=== PATIENT | female | born 1945 | race Caucasian/White ===

== ENCOUNTER 2017-09-04 05:54 | Inpatient (IN) | payer MEDICARE, OTHER ==
[2017-09-04] MEDS ORDERED: ROPIVACAINE HCL/PF 100 MG, EPINEPHrine 0.2 MG, KETOROLAC TROMETHAMINE 30 MG in NORMAL S... IJ PRN (06:00)
[2017-09-04] MEDS ORDERED: ceFAZolin SODIUM 1 GM VIAL IV PRN (06:00)
[2017-09-04] MEDS ORDERED: MORPHINE SULFATE 15 MG TABLET.SA PO PRN (06:00)
[2017-09-04] MEDS ORDERED: TRANEXAMIC ACID 1,000 MG in NORMAL SALINE 100 ML IV PRN (06:00)
[2017-09-04] MEDS ORDERED: RINGER'S SOLUTION,LACTATED 1,000 ML IV PRN (06:00)
[2017-09-04] MEDS ORDERED: RINGER'S SOLUTION,LACTATED 800 ML IV ONE (07:45)
[2017-09-04] MEDS ORDERED: RINGER'S SOLUTION,LACTATED 1,000 ML IV ONE ×2 (09:19→10:53)
[2017-09-04] MEDS ORDERED: MAGNESIUM HYDROXIDE 30 ML UDC PO PRN (11:10)
[2017-09-04] MEDS ORDERED: ACETAMINOPHEN 500 MG TABLET PO PRN (11:10)
[2017-09-04] MEDS ORDERED: ZOLPIDEM TARTRATE 5 MG TABLET PO PRN (11:10)
[2017-09-04] MEDS ORDERED: HYDROmorphone HCL 1 MG/ML DISP.SYRIN IV PRN (11:10)
[2017-09-04] MEDS ORDERED: MAG HYDROX/ALUMINUM HYD/SIMETH 30 ML UDC PO PRN (11:10)
[2017-09-04] MEDS ORDERED: DEXTROSE 5%-LACTATED RINGERS 1,000 ML IV PRN (11:10)
[2017-09-04] MEDS ORDERED: PROMETHAZINE HCL 5 MG in DEXTROSE 5 % IN WATER 50 ML IV PRN ×2 (11:10)
[2017-09-04] MEDS ORDERED: ONDANSETRON HCL/PF 2 MG/ML VIAL IV PRN (11:10)
--- NOTE | 2017-09-04 11:10 | POSTOP NO ---
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
--- NOTE | 2017-09-04 11:59 | OR ---
Anesthesia Procedure Note - Anesthesia Procedure Note Date of Service: 09/04/17 Narrative: Vital Signs - Last Taken Temp 36.4 C L 09/04/17 11:54 Pulse 67 09/04/17 11:54 Resp 14 09/04/17 11:54 BP 121/61 09/04/17 11:54 Pulse Ox 98 09/04/17 11:54 O2 Oxygen Delivery Method Room Air ANESTHESIA PROCEDURE NOTE Date of Procedure: 09/04/2017 Time of procedure: 7:50 AM. Performed by: MARIANO Mendosa CRNA, MSN Drip Pumper: Beatriz Franklin RN. Preprocedure diagnosis: Left total knee arthroplasty revision. Post procedure diagnosis: Same. Procedure: Left femoral nerve block. Indications: Post left total knee arthroplasty revision pain relief. Findings: See below. Details of the procedure: The patient was brought to OR #4 and placed in supine position. The patient's last femoral area was prepped with chlorhexidine and using ultrasound guidance the left femoral artery and nerve was identified and lidocaine 1% was infiltrated to the skin of the intended injection site. Under ultrasound guidance the femoral nerve was approached with visualization of a 2 inch shield block needle until a thigh/leg response was identified on nerve stimulator. Once the stimulator response was effective at less than 0.5 mV and greater than 0.3 mV with the needle visualized, the femoral nerve was surrounded with 30 mL bupivacaine 0.25% with 1-200,000 epinephrine. Please see radiology/ultrasound report for details and retained images of the procedure. EBL: 0 Fluids: N/A. Specimen: N/A. Post procedure condition: The patient tolerated the procedure well. No complications were noted. Thank you for this consultation. Rick Barnhart CRNA, ARNP, MSN 09/04/17 11:56
[2017-09-04] MEDS: KETOROLAC TROMETHAMINE 15 MG/ML VIAL IV SCH ×2 (12:55→17:47)
[2017-09-04] MEDS: ceFAZolin SODIUM 1 GM in DEXTROSE 5 % IN WATER 100 ML IV SCH ×4 (12:56→19:21)
[2017-09-04] MEDS: CALCIUM CARBONATE/VITAMIN D3 1 TAB TABLET PO SCH ×2 (12:56→17:47)
[2017-09-04] MEDS: oxyCODONE HCL/ACETAMINOPHEN 1 TAB TABLET PO PRN (15:42)
--- NOTE | 2017-09-04 17:00 | CONS ---
[facility] - General Date of Service: 09/04/17 Narrative: medical management Source: patient Exam Limitations: clinical condition - History of Present Illness Initial Comments: Brenna Gerardo , is a 72 year old, White Female, with PMH of Hypertension, Hyperlipidimia, Morbid Obesity who was referred to me for medical management on 09/04/2017. She just had a revision of her left total knee arthrorplasty. She is is on her recliner and is currently still feeling numb but able to move her toes. Timing/Duration: 1/2 hour Associated Symptoms: nausea Allergies/Adverse Reactions: Allergies No Known Allergies Allergy (Verified 09/04/17 06:51) Home Medications: Home Medications Medication Instructions Recorded Last Taken Acetaminophen [Tylenol] 1,300 mg PO HS 07/03/15 Unknown Ascorbic Acid [Vitamin C] 500 mg PO DAILY 07/03/15 Unknown Aspirin [Aspirin Enteric Coated] 81 mg PO DAILY 07/03/15 Unknown Ferrous Sulfate [Iron] 325 mg PO DAILY 07/03/15 Unknown Glucosamine/D3/Boswellia Nella 1 each PO DAILY 07/03/15 Unknown [Osteo Bi-Flex Caplet] Multivitamins [Multivitamin David] 1 cap PO DAILY 07/03/15 Unknown Potassium Chloride [Klor-Con 10] 30 meq PO DAILY 07/03/15 Unknown Vit C/E/Zn/Coppr/Lutein/Zeaxan 1 each PO DAILY 07/03/15 Unknown [Ocuvite Lutein & Zeaxanthin Cp] Biotin 10,000 mcg PO DAILY 08/18/17 Unknown Calcium Carbonate/Vitamin D3 1 each PO BID 08/18/17 Unknown [Calcium 500 + Vit D3 400 Tab] Calcium Carbonate/Vitamin D3 1 each PO TID 08/18/17 Unknown [Calcium 500 + Vit D3 400 Tab] Losartan/Hydrochlorothiazide 1 each PO DAILY 08/18/17 Unknown [Hyzaar 100-25 Tablet] [place]-3/Dha/Epa/Fish Oil [Fish Oil 1 each PO DAILY 08/18/17 Unknown 1,360 mg Softgel] - Patient's Past Medical History Patient History - Medical: Anemia, Arthritis, Cataracts, GERD Patient History - Cardiac/Respiratory: Hypertension Patient History - Cancer: Other Patient History - Surgical Procedures: Cataracts, Cholecystectomy, Colonoscopy, D & C, Other Patient History - Other: None - Family History Mother Family History - Medical: , No pertinent hx Family History - Cardiac/Respiratory: Cardiomyopathy, Coronary Heart Disease, Hypertension Family History - Cancer: Breast, Lung Sister Family History - Cardiac/Respiratory: CVA/Stroke Family History - Cancer: No pertinent family hx Father Family History - Medical: , No pertinent hx Family History - Cardiac/Respiratory: CVA/Stroke Family History - Cancer: No pertinent family hx Brother Family History - Cardiac/Respiratory: Coronary Heart Disease, Hypertension Family History - Cancer: No pertinent family hx - Social History Living Situations: other Abuse History: No History of abuse Psych History: No pertinent hx Smoking Status: Never smoker Have you smoked in the past 12 months: No Do you dip or chew tobacco: No Alcohol Use: occasionally Drug Use: none - Immunizations Immunizations Up to Date: Yes Hx Pneumococcal Vaccination: No History of Influenza Vaccine: Yes Procedures AFTER-CATAR DISCISSION (06/11/02) BONE GRAFT-METATAR/TAR (11/20/09) BUNIONECT/SFT/OSTEOTOMY (11/05/09) CERVICAL LES DESTRUC NEC (11/12/08) CLOSED ENDOSCOPIC BIOPSY OF LARGE INTESTINE (07/13/04) COLONOSCOPY (07/15/15) D & C NEC (11/12/08) HYSTEROSCOPY (11/12/08) INT FIXATION-METATAR/TAR (11/12/09) PACKED CELL TRANSFUSION (12/23/04) REMOV INT FIX-METAT/TAR (11/12/09) REPAIR OF HAMMER TOE (11/05/09) TOTAL KNEE REPLACEMENT (12/23/04) Medications - Medications Current Medications: Current Medications Calcium/Vitamin D (Calcarb 600 With Vitamin D) 1 tab PO TID SARAH Stop: 10/04/17 13:01 Last Admin: 09/04/17 12:56 Dose: 1 tab Cefazolin Sodium (Ancef) 2 gm IV PREOP PRN PRN Reason: Preop Stop: 09/04/17 23:59 Last Admin: 09/04/17 08:15 Dose: 2 gm Tranexamic Acid 1,000 mg/ (Sodium Chloride) 110 mls @ 660 mls/hr IV ONCE PRN PRN Reason: Prior to Tourniquet Release Stop: 09/04/17 23:59 Last Admin: 09/04/17 10:45 Dose: 110 mls Ropivacaine 100 mg/Epinephrine HCl 0.2 mg/Ketorolac Tromethamine 30 mg/Sodium Chloride 111.2 mls @ 0.01 mls/hr IJ PRN PRN PRN Reason: Joint Injection Stop: 09/04/17 23:59 Last Admin: 09/04/17 10:47 Dose: 111.2 mls Lactated Ringer's (Lactated Ringers) 1,000 mls @ 175 mls/hr IV .Q5H43M PRN PRN Reason: Keep Vein Open Stop: 10/04/17 06:01 Last Admin: 09/04/17 06:50 Dose: 175 mls/hr Cefazolin Sodium 1 gm/ (Dextrose/Water) 110 mls @ 200 mls/hr IV Q6H SARAH PRN Reason: Protocol Stop: 09/05/17 01:42 Last Admin: 09/04/17 12:56 Dose: 200 mls/hr Dextrose/Lactated Ringer's (Dextrose 5%-Lr) 1,000 mls @ 125 mls/hr IV .Q8H PRN PRN Reason: HYDRATION Stop: 10/04/17 11:11 Last Admin: 09/04/17 12:54 Dose: 125 mls/hr Ketorolac Tromethamine (Toradol) 15 mg IV Q6H SARAH Stop: 09/06/17 06:16 Last Admin: 09/04/17 12:55 Dose: 15 mg Morphine Sulfate (Ms Contin) 15 mg PO PREOP PRN PRN Reason: PREOP PAIN Stop: 09/04/17 23:59 Last Admin: 09/04/17 07:21 Dose: 15 mg Oxycodone/Acetaminophen (Percocet 5 Mg/325 Mg) 2 tab PO Q4H PRN PRN Reason: Moderate Pain Stop: 10/04/17 11:11 Last Admin: 09/04/17 15:42 Dose: 2 tab Review of Systems - Review of Systems Generalized/Overall Review: Absent: Chills, Fever Respiratory: Absent: Cough, Shortness of Breath, Orthopnea Cardiac: Absent: Chest Pain, Edema, Palpitations Abdominal: Present: Nausea. Absent: Vomiting Genitourinary: Absent: Urgency, Frequency Musculoskeletal: Absent: Joint Pain Physical Examination - Exam Vital Signs: Vital Signs - Last Taken Temp 36.4 C L 09/04/17 12:00 Pulse 70 09/04/17 12:00 Resp 18 09/04/17 12:00 BP 116/57 09/04/17 12:00 Pulse Ox 95 09/04/17 12:00 O2 Oxygen Delivery Method Room Air Constitutional: Present: Alert, Oriented x3, Cooperative ENT Exam: Present: hearing grossly normal Eye Exam: bilateral eye: normal inspection, PERRL, EOMI Neck: Present: supple Breasts: Present: Exam deferred Respiratory: Present: normal breath sounds, No rales, No wheezing Cardiovascular/Chest: Present: regular rate, rhythm, no JVD, no murmur Abdomen: Present: Normal bowel sounds, soft, nontender, nondistended Extremity: Present: no calf tenderness, other - able to move her toes - Assessments/Findings (1) Status post revision of total knee replacement Diagnosis(s): patient is comfortable at this time. continue with PT/OT and anticoagulation Problem: Acute Qualifiers: Laterality: left Qualified Code(s): Z96.652 - Presence of left artificial knee joint (2) Hyperlipemia Diagnosis(s): continue with home medications Problem: Chronic Qualifiers: Hyperlipidemia type: mixed hyperlipidemia Qualified Code(s): E78.2 - Mixed hyperlipidemia (3) Hypertension Diagnosis(s): continue with home medications. Problem: Chronic Qualifiers: Hypertension type: essential hypertension Qualified Code(s): I10 - Essential (primary) hypertension
[2017-09-04] MEDS: MORPHINE SULFATE 15 MG TABLET.SA PO SCH (20:56)
[2017-09-04] MEDS: SENNOSIDES/DOCUSATE SODIUM 1 TAB TABLET PO SCH (20:57)
[2017-09-04] MEDS: diphenhydrAMINE HCL 50 MG/ML VIAL IV PRN (21:00)
[2017-09-05] MEDS: ceFAZolin SODIUM 1 GM in DEXTROSE 5 % IN WATER 100 ML IV SCH ×2 (00:23)
[2017-09-05] MEDS: KETOROLAC TROMETHAMINE 15 MG/ML VIAL IV SCH ×5 (00:23→23:50)
[2017-09-05] MEDS: diphenhydrAMINE HCL 50 MG/ML VIAL IV PRN (02:04)
[2017-09-05] MEDS: oxyCODONE HCL/ACETAMINOPHEN 1 TAB TABLET PO PRN ×2 (04:36→19:43)
[2017-09-05 05:59] LABS: Hematocrit 27.6 % (37.0-47.0); Hemoglobin 9.2 gm/dL (12.5-16.0); Mean Cell Volume 94.2 fl (78-100); Mean Corpuscular Hemoglobin 31.4 pg (27-31); Mean Corpuscular Hgb Conc 33.3 g/dl (32-36); Mean Platelet Volume 9.8 fl (6.0-9.5); Platelet Count 157 K/mm3 (150-450); Red Blood Count 2.93 M/mm3 (4.2-5.4); Red Cell Distribution Width 13.2 % (11.5-14.0); White Blood Count 8.3 K/mm3 (4.0-10.5)
[2017-09-05 06:10] LABS: Anion Gap 8.1 mmol/L (6.8-13.8); BUN/Creatinine Ratio 25.2 (9.0-21.6); Calcium * 8.8 mg/dL (7.9-10.9); Carbon Dioxide 30.7 mmol/L (24-32.6); Estimated Creat Clear 39.3; Potassium 3.8 mmol/L (3.4-4.6)
--- NOTE | 2017-09-05 08:12 | PN ---
Subjective - Date and Time Seen Date: 09/05/17 Time: 08:12 Subjective Narrative: Patient NAD. Zaheerbrile. Tmax 36.7. Objective - Review of Systems Generalized/Overall Review: Denies: Weakness, Chills, Fever Respiratory: Denies: Cough, Shortness of Breath, Orthopnea Cardiac: Denies: Chest Pain, Edema, Palpitations Abdominal: Denies: Nausea, Vomiting Genitourinary Symptoms: Denies: Urgency, Frequency Musculoskeletal Complaints: Reports: Joint Pain - Vitals Vitals: Last Vital Signs Temp 36.7 C 09/05/17 07:19 Pulse 69 09/05/17 07:19 Resp 18 09/05/17 07:19 BP 102/45 09/05/17 07:19 Pulse Ox 95 09/05/17 07:19 - Abnormal Lab Findings Abnormal Lab Findings: Abnormal Lab Results 09/05/17 09/05/17 Range/Units 05:56 05:56 RBC 2.93 L (4.2-5.4) M/mm3 Hgb 9.2 L (12.5-16.0) gm/dL Hct 27.6 L (37.0-47.0) % MCH 31.4 H (27-31) pg MPV 9.8 H (6.0-9.5) fl BUN 28 H (3-23) mg/dL Est GFR (Non-Af Amer) 52 L (60-130) mL/min BUN/Creatinine Ratio 25.2 H (9.0-21.6) Random Glucose 121 H (70-110) mg/dL - Exam Constitutional: Present: Alert, Oriented x3, Cooperative ENT Exam: Present: hearing grossly normal Neck: Present: supple Respiratory: Present: normal breath sounds, No rales, No wheezing Cardiovascular/Chest: Present: regular rate, rhythm, no JVD, no murmur Extremity: Present: no pedal edema, no calf tenderness Cauti Physician Documentation - Urinary Catheter Management Urethral (Tucker) Date of Insertion: 09/04/17 Time of Insertion: 08:51 Date of Removal: 09/05/17 Time of Removal: 07:51 Assessment/Plan - Problems/Diagnosis (1) Status post revision of total knee replacement Problem: Acute Qualifiers: Laterality: left Qualified Code(s): Z96.652 - Presence of left artificial knee joint Narrative: POD # 1. afebrile. continue with PT/OT. (2) Acute blood loss anemia Problem: Acute Narrative: will monitor. (3) Hyperlipemia Problem: Chronic Qualifiers: Hyperlipidemia type: mixed hyperlipidemia Qualified Code(s): E78.2 - Mixed hyperlipidemia Narrative: stable (4) Hypertension Problem: Chronic Qualifiers: Hypertension type: essential hypertension Qualified Code(s): I10 - Essential (primary) hypertension Narrative: stable.
--- NOTE | 2017-09-05 08:13 | PN ---
Subjective - Date and Time Seen Date: 09/05/17 Time: 08:12 Subjective Narrative: Subjective: Reports minimal pain. Was able to get to the chair with therapy. Pain is well-controlled. Voiding without any complications. Tolerating by mouth intake. Denies any nausea or vomiting. Denies calf pain. Slept well. Physical exam: Alert and oriented to person, place and time Left lower Extremity: Palpable dorsalis pedis pulse. Sensation grossly intact to light touch. Dressings clean and dry. Able to flex and extend ankle and toes. No excessive drainage. Calf and thigh are soft and nontender. Assessment: Postop day 1 status post revision left total knee arthroplasty. Plan: Due to the need for pain control, post-operative limited mobility, protection of the surgical site and joint, monitoring of the wound, and the management of chronic medical conditions, she requires continued inpatient care. Continue with physical and occupational therapy weightbearing as tolerated. Continue with anticoagulation. 24 hours postoperative prophylactic antibiotics. Pain control with goal to rely on oral medications. Continue bowel regimen. Will need 6 weeks with walker or assitive device to protect joint while ambulating during the recovery process. Discharge planning. Discontinue drain and Tucker catheter. Repeat hemogram and BMP in a.m. in order to monitor for postoperative anemia and electrolyte imbalance. Objective - Vitals Vitals: Last Vital Signs Temp 36.7 C 09/05/17 07:19 Pulse 69 09/05/17 07:19 Resp 18 09/05/17 07:19 BP 102/45 09/05/17 07:19 Pulse Ox 95 09/05/17 07:19 - Abnormal Lab Findings Abnormal Lab Findings: Abnormal Lab Results 09/05/17 09/05/17 Range/Units 05:56 05:56 RBC 2.93 L (4.2-5.4) M/mm3 Hgb 9.2 L (12.5-16.0) gm/dL Hct 27.6 L (37.0-47.0) % MCH 31.4 H (27-31) pg MPV 9.8 H (6.0-9.5) fl BUN 28 H (3-23) mg/dL Est GFR (Non-Af Amer) 52 L (60-130) mL/min BUN/Creatinine Ratio 25.2 H (9.0-21.6) Random Glucose 121 H (70-110) mg/dL Cauti Physician Documentation - Urinary Catheter Management Urethral (Tucker) Date of Insertion: 09/04/17 Time of Insertion: 08:51 Date of Removal: 09/05/17 Time of Removal: 07:51 Assessment/Plan - Problems/Diagnosis (1) Acute blood loss anemia Problem: Acute (2) Status post revision of total knee replacement Problem: Acute Qualifiers: Laterality: left Qualified Code(s): Z96.652 - Presence of left artificial knee joint (3) Hyperlipemia Problem: Chronic Qualifiers: Hyperlipidemia type: mixed hyperlipidemia Qualified Code(s): E78.2 - Mixed hyperlipidemia (4) Hypertension Problem: Chronic Qualifiers: Hypertension type: essential hypertension Qualified Code(s): I10 - Essential (primary) hypertension (5) Iron (Fe) deficiency anemia Problem: Chronic
[2017-09-05] MEDS ORDERED: NON-FORMULARY 1 DOSE DOSE (Losartan/Hydrochlorothiazide [Hyzaar 100-25 Tablet] 1 EACH) PO SCH (09:00)
[2017-09-05] MEDS: LOSARTAN POTASSIUM 50 MG TABLET PO SCH (09:10)
[2017-09-05] MEDS: CALCIUM CARBONATE/VITAMIN D3 1 TAB TABLET PO SCH ×3 (09:10→18:01)
[2017-09-05] MEDS: MORPHINE SULFATE 15 MG TABLET.SA PO SCH ×2 (09:11→20:13)
[2017-09-05] MEDS: FERROUS SULFATE 325 MG TABLET PO SCH (09:11)
[2017-09-05] MEDS: BETA-CAROTENE(A) W-C , E/MIN 1 TAB TABLET PO SCH (09:11)
[2017-09-05] MEDS: MULTIVITAMINS 1 CAP CAPSULE PO SCH (09:11)
[2017-09-05] MEDS: OMEGA-3 FATTY ACIDS 1 CAP CAPSULE PO SCH (09:11)
[2017-09-05] MEDS: HYDROCHLOROTHIAZIDE 25 MG TABLET PO SCH (09:11)
[2017-09-05] MEDS: POTASSIUM CHLORIDE 10 MEQ TABLET.SA PO SCH (09:11)
[2017-09-05] MEDS: ASCORBIC ACID 500 MG TABLET PO SCH (09:11)
[2017-09-05] MEDS: NON-FORMULARY 1 DOSE DOSE (Glucosamine/D3/Boswellia Serra [Osteo Bi-Flex Caplet] 1 EACH) PO SCH (09:13)
[2017-09-05] MEDS: ENOXAPARIN SODIUM 40 MG/0.4 ML SYRG SC SCH (10:22)
[2017-09-05] MEDS: SENNOSIDES/DOCUSATE SODIUM 1 TAB TABLET PO SCH (20:13)
[2017-09-06 05:32] LABS: Hematocrit 25.9 % (37.0-47.0); Hemoglobin 8.7 gm/dL (12.5-16.0); Mean Cell Volume 93.5 fl (78-100); Mean Corpuscular Hemoglobin 31.4 pg (27-31); Mean Corpuscular Hgb Conc 33.6 g/dl (32-36); Mean Platelet Volume 9.9 fl (6.0-9.5); Platelet Count 139 K/mm3 (150-450); Red Blood Count 2.77 M/mm3 (4.2-5.4); Red Cell Distribution Width 13.2 % (11.5-14.0); White Blood Count 7.4 K/mm3 (4.0-10.5)
[2017-09-06 05:45] LABS: Anion Gap 9.7 mmol/L (6.8-13.8); BUN/Creatinine Ratio 32.3 (9.0-21.6); Calcium * 8.9 mg/dL (7.9-10.9); Carbon Dioxide 28.2 mmol/L (24-32.6); Estimated Creat Clear 45.4; Potassium 3.9 mmol/L (3.4-4.6)
[2017-09-06] MEDS: KETOROLAC TROMETHAMINE 15 MG/ML VIAL IV SCH (05:52)
--- NOTE | 2017-09-06 08:16 | PN ---
Subjective - Date and Time Seen Date: 09/06/17 Time: 08:12 Subjective Narrative: POD # 2. Afebrile. Tmax 37.4. has not had BM yet- is taking prune juice . Objective - Review of Systems Generalized/Overall Review: Denies: Weakness, Chills, Fever Respiratory: Denies: Cough, Shortness of Breath Cardiac: Denies: Edema, Palpitations Abdominal: Denies: Nausea, Vomiting Genitourinary Symptoms: Denies: Frequency, Hesitancy Musculoskeletal Complaints: Reports: Joint Pain - Vitals Vitals: Last Vital Signs Temp 36.4 C L 09/06/17 07:00 Pulse 71 09/06/17 07:00 Resp 14 09/06/17 07:00 BP 136/66 09/06/17 07:00 Pulse Ox 92 09/06/17 07:00 - Abnormal Lab Findings Abnormal Lab Findings: Abnormal Lab Results 09/06/17 09/06/17 Range/Units 05:29 05:29 RBC 2.77 L (4.2-5.4) M/mm3 Hgb 8.7 L (12.5-16.0) gm/dL Hct 25.9 L (37.0-47.0) % MCH 31.4 H (27-31) pg Plt Count 139 L (150-450) K/mm3 MPV 9.9 H (6.0-9.5) fl BUN 31 H (3-23) mg/dL BUN/Creatinine Ratio 32.3 H (9.0-21.6) - Exam Constitutional: Present: Alert, Oriented x3, Cooperative ENT Exam: Present: hearing grossly normal Neck: Present: supple Respiratory: Present: lungs clear, No rales, No wheezing Cardiovascular/Chest: Present: regular rate, rhythm, no JVD, no murmur Abdomen: Present: soft, nontender, nondistended Extremity: Present: no pedal edema, no calf tenderness Cauti Physician Documentation - Urinary Catheter Management Urethral (Tucker) Date of Insertion: 09/04/17 Time of Insertion: 08:51 Date of Removal: 09/05/17 Time of Removal: 07:51 Assessment/Plan - Problems/Diagnosis (1) Status post revision of total knee replacement Problem: Acute Qualifiers: Laterality: left Qualified Code(s): Z96.652 - Presence of left artificial knee joint Narrative: POD # 2. Continue with PT/OT. possible discharge today per patient. (2) Acute blood loss anemia Problem: Acute Narrative: on So4 . (3) Hyperlipemia Problem: Chronic Qualifiers: Hyperlipidemia type: mixed hyperlipidemia Qualified Code(s): E78.2 - Mixed hyperlipidemia Narrative: stable (4) Hypertension Problem: Chronic Qualifiers: Hypertension type: essential hypertension Qualified Code(s): I10 - Essential (primary) hypertension Narrative: controlled.
[2017-09-06] MEDS: CALCIUM CARBONATE/VITAMIN D3 1 TAB TABLET PO SCH ×2 (09:14→13:52)
[2017-09-06] MEDS: HYDROCHLOROTHIAZIDE 25 MG TABLET PO SCH (09:15)
[2017-09-06] MEDS: POTASSIUM CHLORIDE 10 MEQ TABLET.SA PO SCH (09:15)
[2017-09-06] MEDS: MULTIVITAMINS 1 CAP CAPSULE PO SCH (09:15)
[2017-09-06] MEDS: OMEGA-3 FATTY ACIDS 1 CAP CAPSULE PO SCH (09:16)
[2017-09-06] MEDS: BETA-CAROTENE(A) W-C , E/MIN 1 TAB TABLET PO SCH (09:16)
[2017-09-06] MEDS: FERROUS SULFATE 325 MG TABLET PO SCH (09:16)
[2017-09-06] MEDS: LOSARTAN POTASSIUM 50 MG TABLET PO SCH (09:16)
[2017-09-06] MEDS: ENOXAPARIN SODIUM 40 MG/0.4 ML SYRG SC SCH (09:16)
[2017-09-06] MEDS: ASCORBIC ACID 500 MG TABLET PO SCH (09:16)
[2017-09-06] MEDS: NON-FORMULARY 1 DOSE DOSE (Glucosamine/D3/Boswellia Serra [Osteo Bi-Flex Caplet] 1 EACH) PO SCH (09:17)
[2017-09-06] MEDS: MORPHINE SULFATE 15 MG TABLET.SA PO SCH (09:19)
[2017-09-06 11:25] VITALS: BP 135/58
--- NOTE | 2017-09-06 13:59 | DS ---
(1) Acute blood loss anemia Problem: Acute (2) Status post revision of total knee replacement Problem: Acute Qualifiers: Laterality: left Qualified Code(s): Z96.652 - Presence of left artificial knee joint (3) Hyperlipemia Problem: Chronic Qualifiers: Hyperlipidemia type: mixed hyperlipidemia Qualified Code(s): E78.2 - Mixed hyperlipidemia (4) Hypertension Problem: Chronic Qualifiers: Hypertension type: essential hypertension Qualified Code(s): I10 - Essential (primary) hypertension (5) Iron (Fe) deficiency anemia Problem: Chronic Description of Stay: Mrs. Gerardo was admitted to the floor after undergoing revision left total knee arthroplasty. Tolerated this well. Was admitted to the floor postoperatively for 24 hours of IV antibiotics, pain control, medical comanagement, and occupational and physical therapy. OT and PT were consulted to assist with activities of daily living and ambulation. Was made weightbearing as tolerated with range of motion as tolerated. Pain was initially controlled with IV regimen. This was transitioned to oral once tolerating a by mouth intake. Was resumed on home diet and medications. Had a Tucker catheter inserted and the operating room which was discontinued on postoperative day 1. A drain was placed intraoperatively into the knee which was discontinued on postoperative day 1. Lovenox SCD and PATRIA hose were utilized for DVT prophylaxis. Vital signs remained stable to the hospital course. Serial labs were obtained which showed a final hemoglobin of 8.7 grams. BMP was reviewed and was stable. Physical examination throughout the hospital course showed an extremity that had sensation that was intact to light touch, palpable pulses, a benign wound, motor intact to the toes, ankle, and knee. Knee range of motion was approximately 0 degrees to 80 degrees. Once an oral pain regimen was tolerated and physical therapy goals were met, it was felt that they were stable for discharge to home. Instructions: Continue with weightbearing as tolerated and range of motion as tolerated. It is okay to shower and get the wound wet as long as there is no drainage from the wound. Do not bathe or soak the wound. If there is any drainage from the wound keep the wound clean and dry and cover with dry gauze and tape. Change every 2-3 days as needed if there is any drainage. Cover wound while showering if there is any drainage. Continue with physical therapy. Resume home diet. Report any fever over 101.5 Fahrenheit, uncontrolled pain, increased drainage, foul odor of drainage, new or increased calf pain or shortness of breath, or any other significant complaints. A 325mg dialy aspirin will be started after finishing anticoagulation if not allergic. Continue with PATRIA hose on the operative extremity until instructed otherwise. No driving until instructed otherwise. Follow up in approximately 10-14 days. Procedures Performed: see notes below List Procedures: Revision left total knee arthroplasty Discharge Disposition: Home self care Disposition: Home self-care Condition: Good Discharge Activity: Activity as tolerated, Weight bearing Discharge Diet: General/regular food Long-Term Therapy: Physicial Therapy Referrals: Paresh Bell MD [Primary Care Provider] - Additional Patient Instructions (free text): Follow-up in the office with Dr. Bentley 09/19/17 at 10:45. Prescriptions (Any new or edited meds): Enoxaparin Sodium [Lovenox] 40 mg SC Q24H #7 disp.syrin Morphine Sulfate [Ms Contin] 15 mg PO Q12H #10 tablet.sa oxyCODONE HCL/ACETAMINOPHEN [Percocet 5 MG/325 MG] 2 tab PO Q4H PRN #90 tablet PRN Reason: Moderate Pain Complete Home Medications List: Complete Home Medication List: Ascorbic Acid [Vitamin C] 500 mg PO DAILY 07/03/15 Ferrous Sulfate [Iron] 325 mg PO DAILY 07/03/15 Glucosamine/D3/Boswellia Nella [Osteo Bi-Flex Caplet] 1 each PO DAILY 07/03/15 Multivitamins [Multivitamin David] 1 cap PO DAILY 07/03/15 Potassium Chloride [Klor-Con 10] 30 meq PO DAILY 07/03/15 Vit C/E/Zn/Coppr/Lutein/Zeaxan [Ocuvite Lutein & Zeaxanthin Cp] 1 each PO DAILY 07/03/15 Biotin 10,000 mcg PO DAILY 08/18/17 Calcium Carbonate/Vitamin D3 [Calcium 500-Vit D3 400 Tablet] 1 each PO BID 08/18 Calcium Carbonate/Vitamin D3 [Calcium 500-Vit D3 400 Tablet] 1 each PO TID 08/18 Losartan/Hydrochlorothiazide [Hyzaar 100-25 Tablet] 1 each PO DAILY 08/18/17 [place]-3/Dha/Epa/Fish Oil [Fish Oil 1,360 mg Softgel] 1 each PO DAILY 08/18/17 Enoxaparin Sodium [Lovenox] 40 mg SC Q24H #7 disp.syrin 09/06/17 Losartan Potassium [Cozaar] 100 mg PO DAILY tablet 09/06/17 Morphine Sulfate [Ms Contin] 15 mg PO Q12H #10 tablet.sa 09/06/17 Sennosides/Docusate Sodium [Senokot-S] 2 tab PO HS tablet 09/06/17 oxyCODONE HCL/ACETAMINOPHEN [Percocet 5 MG/325 MG] 2 tab PO Q4H PRN #90 tablet 09/06/17 Amb Orders for Discharge: PT Evaluation and Treatment Facility: [facility], Location: Rehabilitation Services
== END 2017-09-06 14:52 | disposition home or self-care (01) | DRG 467 ==
LOC: MS 05:54 → OBSVTOIN 05:54
PROVIDERS: ADMIT Orthopaedic Surgery; ATTEND Orthopaedic Surgery
PROC: 0SRD0J9 Replacement of Left Knee Joint with Synthetic Substitute, Cemented, Open Approach (ICD-10-PCS; 2017-09-04)
PROC: 0SPD0JZ Removal of Synthetic Substitute from Left Knee Joint, Open Approach (ICD-10-PCS; principal; 2017-09-04 08:00)
DX: T84.033A Mechanical loosening of internal left knee prosthetic joint, initial encounter (principal); D62 Acute posthemorrhagic anemia; I10 Essential (primary) hypertension; E78.5 Hyperlipidemia, unspecified; D50.9 Iron deficiency anemia, unspecified

== ENCOUNTER 2020-10-01 06:22 | Inpatient (IN) ==
[~2020-10-01 06:22] MED LIST: MORPHINE SULFATE 15 MG TABLET.SA PO PRN; TRANEXAMIC ACID 1,000 MG in NORMAL SALINE 100 ML IV PRN; ceFAZolin SODIUM 1 GM VIAL IV PRN
[2020-10-01] MEDS ORDERED: ISOPROPYL ALCOHOL 480 APPL BTL MC ONE (06:52)
[2020-10-01] MEDS ORDERED: ceFAZolin SODIUM 1 GM VIAL ONE (06:53)
[2020-10-01] MEDS: RINGER'S SOLUTION,LACTATED 1,000 ML IV PRN ×2 (07:15→08:15)
--- NOTE | 2020-10-01 07:34 | ANES ---
Anesthesia Pre Procedure Eval Vitals/Labs: Last Vital Signs Temp 36.6 C 10/01/20 06:40 Pulse 71 10/01/20 06:40 Resp 16 10/01/20 06:40 BP 123/61 10/01/20 06:40 Pulse Ox 96 10/01/20 06:40 HOME MEDICATIONS Ascorbic Acid [Vitamin C] 500 mg PO DAILY 07/03/15 [Last Taken Unknown] Ferrous Sulfate [Iron] 325 mg PO DAILY 07/03/15 [Last Taken Unknown] Multivitamins [Multivitamin David] 1 cap PO DAILY 07/03/15 [Last Taken Unknown] Calcium Carbonate/Vitamin D3 [Calcium 500-Vit D3 400 Tablet] 1 ea PO TID 08/18/17 [Last Taken Unknown] aspirin 81 mg tablet,delayed release 81 mg PO DAILY 05/01/18 [Last Taken Unknown] omega-3 fatty acids 1,000 mg capsule 1,000 mg PO DAILY 05/01/18 [Last Taken Unkn own] vit A 1,000 unit-C 200 mg-E 60 unit-lutein 2 mg and minerals tablet 1 tab PO DAILY 05/01/18 [Last Taken Unknown] potassium chloride 10 mEq tablet,extended release(part/cryst) See Rx Instructions .ROUTE .COMPLEX #270 unknown measurement unit code: not specified 02/12/20 [Last Taken Unknown] amlodipine 5 mg tablet See Rx Instructions .ROUTE .COMPLEX #30 unspecified 07/24/20 [Last Taken 10/01/20] hydrochlorothiazide 25 mg tablet See Rx Instructions .ROUTE .COMPLEX #90 unknown measurement unit code: not specified 09/23/20 [Last Taken Unknown] losartan 100 mg tablet See Rx Instructions .ROUTE .COMPLEX #90 unknown measurement unit code: not specified 09/23/20 [Last Taken 10/01/20] Allergies/Adverse Reactions: Allergies Allergy/AdvReac Type Severity Reaction Status Date / Time No Known Allergies Allergy Verified 10/01/20 06:55 - Planned Procedure Planned Procedure: R Reverse Total shoulder Medication List Reviewed:: Yes Allergies Verified: Yes Medical History (Last Reviewed 10/01/20 @ 07:33 by Emanuel Frey CRNA) Hyperlipidemia (Chronic) Hypertension (Chronic) Bilateral primary osteoarthritis of knee Onset Date: Unknown Bunion Hearing loss Surgical History (Last Reviewed 10/01/20 @ 07:33 by Emanuel Frey CRNA) FH: total knee replacement H/O dilation and curettage Onset Date: ~2008 History of YAG laser capsulotomy of lens Onset Date: ~2001 History of arthroplasty of left knee Onset Date: ~09/04/17 Dr. Mc Robb History of bilateral knee arthroplasty Onset Date: ~2004 Dr. Myers History of cataract surgery Onset Date: ~1995 History of cholecystectomy History of colonoscopy Onset Date: ~2014 History of endometrial biopsy Onset Date: ~2005 History of hysteroscopy Onset Date: ~2008 Hx laparoscopic cholecystectomy Onset Date: ~2012 S/P foot surgery, left Onset Date: ~2008 S/P foot surgery, right Onset Date: ~2009 polypectomy Onset Date: ~2008 uterine Family History (Last Reviewed 10/01/20 @ 07:33 by Emanuel Frey CRNA) Brother Diverticulitis Hypertension Brother Skin cancer Heart disease Father CVA (cerebral vascular accident) Hypertension Grandfather Myocardial infarction Grandmother CHF (congestive heart failure) Grandmother Uterine cancer Mother , age 91 Cancer lung cancer, breast cancer Hypertension Cardiomyopathy Sister CVA (cerebral vascular accident) Sister Diverticulitis - Family Anesthesia History Family History:: no untoward family reactions to anesthesia - Airway/Neck/Teeth Within Normal Limits:: Yes Teeth Condition: intact Neck Exam: full range of motion Mallampatti Score: 2 Thyromental (T-M) distance: > 6 cm Mandibulo Hyoid distance: > 3 cm - Respiratory Respiratory Physical: lungs clear Smoking Status: Never smoker Sleep Apnea currently treated: No Sleep Apnea by current assessment: No - Cardiovascular Cardiac History: hypertension, hyperlipidemia Tolerate Activity: Fair Heart Sounds: S1 & S2, Regular - Gastrointestinal NPO since: [place] - Anesthesia Assessment and Plan ASA Class: PS, II Anesthesia Type Plan: General LMA - interscalene nerve block
[2020-10-01] MEDS ORDERED: MAGNESIUM HYDROXIDE 30 ML UDC PO PRN (09:56)
[2020-10-01] MEDS ORDERED: MORPHINE SULFATE 2 MG/ML DISP.SYRIN IV PRN (09:56)
[2020-10-01] MEDS ORDERED: ONDANSETRON HCL/PF 2 MG/ML VIAL IV PRN (09:56)
[2020-10-01] MEDS ORDERED: DEXTROSE 5%-LACTATED RINGERS 1,000 ML IV PRN (09:56)
[2020-10-01] MEDS ORDERED: MAG HYDROX/ALUMINUM HYD/SIMETH 30 ML UDC PO PRN (09:56)
[2020-10-01] MEDS ORDERED: ACETAMINOPHEN 500 MG TABLET PO PRN (09:56)
[2020-10-01] MEDS ORDERED: diphenhydrAMINE HCL 50 MG/ML VIAL IV PRN (09:56)
[2020-10-01] MEDS ORDERED: ZOLPIDEM TARTRATE 5 MG TABLET PO PRN (09:56)
--- NOTE | 2020-10-01 10:03 | OR ---
Operative Report - Dictated Report Narrative: DATE OF PROCEDURE: 10/01/2020 PHYSICIAN: Darinel Bentley MD BINDING CUTTER: Louis Azevedo PA-C (provided and essential set of skilled, educated hands that assisted with transfer, positioning, prepping, draping, manipulation, retraction, placement of implants, irrigation, closure wounds, and application of dressings all which cannot be performed by the available surgical crew) PREOPERATIVE DIAGNOSIS: Right rotator cuff deficient shoulder arthrosis. POSTOPERATIVE DIAGNOSIS: Right rotator cuff deficient shoulder arthrosis. OPERATIONS AND PROCEDURES: Right reverse total shoulder arthroplasty. ANESTHESIA: General plus regional. COMPLICATIONS: None. DRAINS: None. SPECIMENS: Bone. ESTIMATED BLOOD LOSS: 100 mL. RETAINED IMPLANTS: 1. DePuy Delta Xtend cementless metaglene. 2. Delta Xtend glenosphere, 38 mm standard. 3. Delta Xtend size 10 modular humeral HORTON-coated cementless stem. 4. Size 1 right modular eccentric epiphysis HORTON-coated cementless. 5. Delta Xtend standard polyethylene size 38 plus 3 mm. 6. Metaglene locking screws, 30 mm and 42 mm in length. 7. Nonlocking metaglene screws, 18 mm x 2 . INDICATIONS FOR PROCEDURE: Mrs. Gerardo is a 75-year-old female with significant past history of rotator cuff tears and deficiency. She had treated these conservatively and had an irreparable rotator cuff with some progression of arthrosis of the shoulder and difficulty with activities of daily living in pain. She was seen in clinic and had failed conservative measures. She wished to proceed with surgical treatment. The risks, benefits, and alternatives were discussed in clinic, including the risk of , blood clots, bleeding, infection, nerve/tendon/blood vessel injury, malposition of components, failure of components, wear or limited range of motion, stiffness, and need for additional procedures, and she wished to proceed. Consent was obtained here in the clinic. DESCRIPTION OF PROCEDURE: After marking the correct extremity in the preoperative holding area, the patient was taken to the operating room. A timeout was performed. IV antibiotics consisting of Ancef were administered prior to procedure. The regional followed by general anesthetic was induced by the nurse cap maker at my request. She was then transitioned to beach chair position with all bony prominences well padded. The head in neutral, legs with SCDs and supported,and the nonoperative arm supported. The surgical arm was prescrubbed with alcohol then prepped and draped in the standard sterile fashion and the skin was covered with ioban. A deltopectoral incision was made and blunt dissection was carried down through the skin. The cephalic vein was identified, protected, and retracted. We then went through the deltopectoral interval, exposing the proximal humerus. It was noted that there was no rotator cuff, supraspinatus and infraspinatus tendon, or teres minor tendon. The subscapularis was intact as well as the biceps. A tag suture was placed in subscapularis tendon as well as the anterior capsule, and this was elevated off the anterior humerus passing along the bicipital groove and into the rotator cuff interval, exposing the proximal humerus. This was then freed off the proximal humerus. A biceps tenotomy was performed and the shoulder was dislocated. The humeral head was noted to show signs of arthrosis. Next, an entry drill was placed down the humerus centered on the longitudinal axis entering off just onto the articular surface on the humeral head. Next were serial reamers up to the size 10 were utilized, which gave good overall cortical contact. Next, a proximal humeral head cut was performed. We made the cut at approximately 10 degrees of retroversion. This appeared to resect an appropriate amount of humeral head. This was then pinned into place and an oscillating saw was utilized to cut this humeral head, protecting the surrounding soft tissues. We then placed a cap over the proximal humerus and turned our attention to the glenoid. The soft tissues were then elevated off the humeral neck as well as circumferentially around the glenoid. The glenoid was exposed. The remaining biceps tendon and labrum were resected. Using tractors, the glenoid was exposed and a guidewire was placed just posterior and inferior to the center of the glenoid. This was made so that it directed slightly superiorly but otherwise perpendicular to the glenoid on the axillary plane. Protecting the surrounding soft tissues, a reamer was utilized in order to remove the remaining cartilage. A hand marker was utilized in order to resect the superior cartilage, and this resulted in a good overall appearance of the glenoid. The center drill lug hole was drilled and had good circumferential bone. The metaglene was then impacted into place and oriented for placement of screws along the mid plane in the superior and inferior quadrants of the glenoid as well as anterior to posterior screws. These were drilled and had appropriate overall length of screws on the superior and inferior metaglene screws. Good purchase was obtained with a 30 mm screw superiorly and 42 mm screw inferiorly. The anterior and posterior screws were drilled and 18 mm anterior and 18mm posterior nonlocking screws were pl aced. We then locked the superior and inferior screws into place. This gave good overall compression down to the glenoid with flat overall appearance and an appropriate alignment. We returned our attention to the proximal humerus. The proximal humeral reaming guide was placed for an eccentric reamer. This was utilized in order to prepare the proximal humerus. The trial stem was assembled on the back table and impacted into place. After placing the trial stem, we then returned to the metaglene. The glenosphere was then secured to the metaglene, impacted, and tightened ensuring that this was seated completely. We then returned to the humeral component and placed the trials of polyethylene inserts and found that the 3mm gave good overall longitudinal traction with no gapping. The shoulder was able to reach 150 degrees of forward flexion and 140 degrees of abduction, external rotation was to 90 degrees and with fulcrum and armpit were unable to hinge the joint out of place, and there was no essentially no gapping of the polyethylene off the humeral head nor any signs of impingement on the glenoid neck. We felt that these were the appropriately placed and sized implants. We then dislocated the shoulder, removed the trial implants, thoroughly irrigated the humerus, impacted the final implants into place in the prior determined retroversion. The trial polyethylene was utilized again and was noted that the actual stem and the trial stem were equal in tension, and thus the final polyethylene was impacted into place. The shoulder was reduced, again noted to be stable, was then thoroughly irrigated. The deltopectoral interval was closed with #0 Vicryl. The deep tissues were then closed with #0 Vicryl, subcutaneous with 3-0 Monocryl, and the skin with sohail. Xeroform, 4 x 4, ABD, soft roll, and full arm Faisal was applied. The patient was placed in a shoulder sling, awoken, and transferred to postanesthesia care in stable condition. All sponge, needle, and instrument counts were correct prior to closing the wounds. We will obtain postoperative films and be admitted to the floor for postoperative pain control, IV antibiotics, and starting of physical therapy. I anticipate a one to two night hospital stay.
--- NOTE | 2020-10-01 10:22 | ANES ---
Post Anesthesia Discharge - Transfer of Care Transfer of Care handoff given to nurse: Yes - Discharge from PACU Discharge from PACU when meets criteria: Yes
--- NOTE | 2020-10-01 10:27 | ANES ---
Anesthesia Procedure Note Procedure Note: ANESTHESIA PROCEDURE NOTE Date of procedure: 10/01/2020. Time of procedure: 08 00. Performed by: Franklyn Frey CRNA Erector Operator: Peggy Cano RN . Preprocedure diagnosis: Right rotator cuff arthropathy. Chronic right shoulder. Post procedure diagnosis: Same. Procedure: Ultrasound-guided right interscalene nerve block Indications: Postoperative analgesia. Findings: Patient is brought to operating room #4 and given a general anesthetic induction with LMA insertion. Patient was placed in a semi-Fowlers position. The right side of patient's neck was prepped with ChloraPrep. Ultrasound utilized to identify the right brachial plexus. A 22-gauge 2 inch regional block needle was advanced under ultrasound guidance until tip of needle was placed just anterior to brachial plexus. Nerve stimulator was utilized with muscle twitch noted with decreasing intensity from 0.8 mA to 0.5 mA. Muscle twitch disappeared at 0.5 mA. 20 mL of 0.5% Marcaine with epinephrine 1-200,000 was injected with adequate spread of local anesthesia noted. Regional block needle was then repositioned and placed just posterior to brachial plexus. A second dose of 20 mL of 0.5% Marcaine with epinephrine 1 200,000 was injected again with adequate spread of local anesthesia noted. Regional block needle was removed intact. EBL: Minimal. Fluids: N/A. Specimen: N/A. Post procedure condition: The patient tolerated the procedure well. No complications were noted. Thank you for this consultation Franklyn Frey CRNA
[2020-10-01] MEDS: KETOROLAC TROMETHAMINE 15 MG/ML VIAL IV SCH ×3 (11:11→22:00)
[2020-10-01] MEDS: ceFAZolin SODIUM 1 GM in DEXTROSE 5 % IN WATER 100 ML IV SCH ×4 (11:12→17:07)
--- NOTE | 2020-10-01 11:30 | ANES ---
Post Anesthesia Assessment - Vital Signs Vitals: Last Vital Signs Temp 36.0 C 10/01/20 10:30 Pulse 71 10/01/20 10:30 Resp 16 10/01/20 10:30 BP 114/39 10/01/20 10:30 Pulse Ox 94 10/01/20 10:30 Airway Patency: Normal - Mental Status Level Of Consciousness: Awake - Pain Level Pain Score: 0 - N/V Assessment Nausea/Vomiting Presence: None Dehydration:: No
[2020-10-01] MEDS: CALCIUM CARBONATE/VITAMIN D3 1 TAB TABLET PO SCH ×2 (13:49→17:07)
[2020-10-01] MEDS: oxyCODONE HCL/ACETAMINOPHEN 1 TAB TABLET PO PRN ×2 (17:08→21:59)
[2020-10-01] MEDS ORDERED: SENNOSIDES/DOCUSATE SODIUM 1 TAB TABLET PO SCH (21:00)
[2020-10-01] MEDS: ASPIRIN 325 MG TABLET.DR PO SCH (21:59)
[2020-10-02] MEDS: ceFAZolin SODIUM 1 GM in DEXTROSE 5 % IN WATER 100 ML IV SCH ×2 (00:43)
[2020-10-02] MEDS: KETOROLAC TROMETHAMINE 15 MG/ML VIAL IV SCH ×2 (04:00→11:25)
[2020-10-02] MEDS ORDERED: MORPHINE SULFATE 10 MG/0.5 ML SYRINGE PO PRN (08:31)
[2020-10-02] MEDS ORDERED: OMEGA-3 FATTY ACIDS 1 CAP CAPSULE PO SCH (09:00)
[2020-10-02] MEDS ORDERED: ASCORBIC ACID 500 MG TABLET PO SCH (09:00)
[2020-10-02] MEDS ORDERED: HYDROCHLOROTHIAZIDE 25 MG TABLET PO SCH (09:00)
[2020-10-02] MEDS ORDERED: POTASSIUM CHLORIDE 10 MEQ TABLET.SA PO SCH (09:00)
[2020-10-02] MEDS ORDERED: amLODIPine BESYLATE 5 MG TABLET PO SCH (09:00)
[2020-10-02] MEDS ORDERED: FERROUS SULFATE 325 MG TABLET PO SCH (09:00)
[2020-10-02] MEDS ORDERED: MULTIVITAMINS 1 CAP CAPSULE PO SCH (09:00)
[2020-10-02] MEDS ORDERED: LOSARTAN POTASSIUM 50 MG TABLET PO SCH (09:00)
[2020-10-02] MEDS ORDERED: BETA-CAROTENE(A) W-C , E/MIN 1 TAB TABLET PO SCH (09:00)
[2020-10-02] MEDS: ASPIRIN 325 MG TABLET.DR PO SCH (09:28)
[2020-10-02] MEDS: CALCIUM CARBONATE/VITAMIN D3 1 TAB TABLET PO SCH ×2 (09:28→12:43)
--- NOTE | 2020-10-02 12:02 | DS ---
(1) Right rotator cuff tear arthropathy Problem: Chronic (2) Status post reverse total replacement of right shoulder Problem: Acute (3) Hyperlipemia Problem: Chronic Qualifiers: (4) Hyperlipidemia Problem: Chronic Qualifiers: (5) Hypertension Problem: Chronic Qualifiers: Date of Discharge:: 10/02/20 Hospital Course: Mrs. Gerardo was admitted to the floor after undergoing right reverse total shoulder arthroplasty. Tolerated this well. Was admitted to the floor postoperatively for 24 hours of IV antibiotics, pain control, medical comanagement, and occupational and physical therapy. OT and PT were consulted to assist with activities of daily living and ambulation. Was made weightbearin g as tolerated with range of motion as tolerated. Pain was initially controlled with IV regimen. This was transitioned to oral once tolerating a by mouth intake. Was resumed on home diet and medications. SCD and PATRIA hose were utilized for DVT prophylaxis. Vital signs remained stable to the hospital course. Physical examination throughout the hospital course showed an extremity that had sensation that was intact to light touch, palpable pulses, a benign wound, motor intact to the right upper extremity. Once an oral pain regimen was tolerated and physical therapy goals were met, it was felt that they were stable for discharge to home. Instructions: Continue with weightbearing as tolerated and range of motion as tolerated. Keep dressings clean and dry. If you note any drainage or for comfort you can cover with dry gauze and tape. Change every 2-3 days as needed. Continue with physical therapy. Resume home diet. Report any fever over 101.5 Fahrenheit, uncontrolled pain, increased drainage, foul odor of drainage, new or increased calf pain or shortness of breath, or any other significant complaints. A 325mg twice a day for 1 month postoperatively. Continue with PATRIA hose on the operative extremity until instructed otherwise. No driving until instructed otherwise. Follow up in approximately 10-14 days. Procedures Performed: see notes below List Procedures: Right reverse total shoulder arthroplasty Discharge Location: Home Disposition: Home self-care Condition: Good Discharge Activity: Activity as tolerated, Other - In immobilizer Discharge Diet: Low salt, Low fat/chol Additional Patient Instructions (free text): Need order for outpatient occupational therapy at discharge. Occupational Therapy at [facility] outpatient rehab department on MondayOctober 05 at 12:[address] [facility] Orthopedic office appointment on MondayOctober 14 at 10:30am. Complete Home Medications List: Complete Home Medication List: Ascorbic Acid [Vitamin C] 500 mg PO DAILY 07/03/15 Ferrous Sulfate [Iron] 325 mg PO DAILY 07/03/15 Multivitamins [Multivitamin David] 1 cap PO DAILY 07/03/15 Calcium Carbonate/Vitamin D3 [Calcium 500-Vit D3 400 Tablet] 1 ea PO TID 08/18/17 aspirin 81 mg tablet,delayed release 81 mg PO DAILY 05/01/18 omega-3 fatty acids 1,000 mg capsule 1,000 mg PO DAILY 05/01/18 vit A 1,000 unit-C 200 mg-E 60 unit-lutein 2 mg and minerals tablet 1 tab PO DAILY 05/01/18 potassium chloride 10 mEq tablet,extended release(part/cryst) See Rx Instructions .ROUTE .COMPLEX #270 unknown measurement unit code: not specified 02/12/20 amlodipine 5 mg tablet See Rx Instructions .ROUTE .COMPLEX #30 unspecified 07/24/20 hydrochlorothiazide 25 mg tablet See Rx Instructions .ROUTE .COMPLEX #90 unknown measurement unit code: not specified 09/23/20 losartan 100 mg tablet See Rx Instructions .ROUTE .COMPLEX #90 unknown measurement unit code: not specified 09/23/20 Aspirin [Aspirin Enteric Coated] 325 mg PO BID tablet. 10/02/20 Morphine Sulfate 1 tab PO Q4H PRN #42 tab 10/02/20 Ondansetron HCl [Zofran] 4 mg PO Q4H #20 tab 10/02/20 Sennosides/Docusate Sodium [Senokot-S] 2 tab PO HS #20 tab 10/02/20 Amb Orders for Discharge: OT Evaluation and Treatment Location: None Selected
[2020-10-02 13:03] VITALS: BP 140/50
== END 2020-10-02 13:20 | disposition home or self-care (01) | DRG 483 ==
LOC: MS 06:22
PROVIDERS: ADMIT Orthopaedic Surgery; ATTEND Orthopaedic Surgery